=== PATIENT | female | born 1950 | race Caucasian/White ===

== ENCOUNTER → 2025-05-31 14:00 | Outpatient (REF) | payer MEDICARE, OTHER, SELFPAY | LOC: HWRAD 14:00 | PROVIDERS: ATTENDING PHYSICIAN Physician Assistant; FAMILY PHYSICIAN Student in an Organized Health Care Education/Training Program | DX: M10.9 Gout, unspecified (principal); M25.50 Pain in unspecified joint; M79.641 Pain in right hand; M79.642 Pain in left hand | CPT/HCPCS: 73120; 73630 ==